=== PATIENT | male | born 1950 | race American Indian/Alaskan Native ===

== ENCOUNTER 2017-01-16 07:25 | Emergency (ER) | payer MEDICARE ==
[2017-01-16 07:48] VITALS: TEMP 98; O2SAT 98
--- NOTE | 2017-01-16 07:53 | ED PDOC ---
Upper Extremity Pain/Injury Time Seen by Provider: 01/16/17 07:34 Chief Complaint (Nursing): Finger,Hand,&Wrist Chief Complaint (Provider): Right hand pain History Per: Patient History/Exam Limitations: no limitations Onset/Duration Of Symptoms: Days (2x) Current Symptoms Are (Timing): Still Present Severity: Moderate Additional Complaint(s): 66 year old male presents to the ED with complaints of right hand pain and swelling that started 2x days ago. He reports taking tylenol with no relief. He denies having associated symptoms of fever, numbness, and weakness, and denies any recent trauma or injury to the hand. PMD: patient does no recall Past Medical History Reviewed: Historical Data, Nursing Documentation, Vital Signs Vital Signs: Last Vital Signs Temp 98 F 01/16/17 07:33 Pulse 103 H 01/16/17 07:33 Resp 16 01/16/17 07:33 BP 164/69 H 01/16/17 07:33 Pulse Ox 98 01/16/17 07:33 - Medical History PMH: CHF, Diverticulitis, HTN, Hypercholesterolemia, Hyperlipidemia, Malignancy (Prostate CA - treated with seeds), End Stage Renal Disease, Chronic Kidney Disease - Surgical History Surgical History: Appendectomy, Pacemaker - Family History Family History: States: Unknown Family Hx - Social History Current smoker - smoking cessation education provided: No Alcohol: None Drugs: Denies - Home Medications Home Medications: Ambulatory Orders Medication Instructions Recorded Allopurinol [Zyloprim] 100 mg PO DAILY 03/15/16 Atorvastatin Calcium 80 mg PO DAILY 03/15/16 Carvedilol [Coreg] 25 mg PO BID 03/15/16 Furosemide 20 mg PO BID 03/15/16 Hydralazine HCl 100 mg PO TID 03/15/16 Sodium Bicarbonate 650 mg PO BID 03/15/16 Sildenafil Citrate [Viagra] 100 mg PO PRN PRN 12/13/16 Acetaminophen [Tylenol 325mg tab] 650 mg PO Q6 PRN #0 tab 12/15/16 Ciprofloxacin HCl [Cipro] 500 mg PO DAILY #14 tablet 12/15/16 Lactobacillus Acidophilus [Bacid 1 cap PO BID #60 cap 12/15/16 Acidophilus] Metronidazole [Flagyl] 500 mg PO TID #45 tablet 12/15/16 amLODIPine [Norvasc] 10 mg PO DAILY #30 tab 12/15/16 Acetaminophen with Codeine 1 each PO Q6H PRN #10 tablet 01/16/17 [Tylenol with Codeine #3 Tablet] Sulfamethoxazole/Trimethoprim 1 tab PO BID #13 tab 01/16/17 [Bactrim DS 800 mg-160 mg] - Allergies Allergies/Adverse Reactions: Allergies Allergy/AdvReac Type Severity Reaction Status Date / Time Penicillins Allergy RASH Verified 01/16/17 07:34 Review of Systems ROS Statement: Except As Marked, All Systems Reviewed And Found Negative Constitutional: Negative for: Fever Musculoskeletal: Positive for: Hand Pain (right hand pain and swelling) Neurological: Negative for: Weakness, Numbness Physical Exam - Reviewed Nursing Documentation Reviewed: Yes Vital Signs Reviewed: Yes - Physical Exam Appears: Positive for: Well, Non-toxic, No Acute Distress Head Exam: Positive for: ATRAUMATIC, NORMOCEPHALIC Skin: Positive for: Normal Color Cardiovascular/Chest: Positive for: Regular Rate, Rhythm, Chest Non Tender Respiratory: Positive for: Normal Breath Sounds. Negative for: Respiratory Distress Pulses-Radial (R): 2+ (sensation is in tact) Extremity: Positive for: Capillary Refill (<2 second capillary refill), Swelling (edema over 2nd MCP joint posteriorly), Other (right hand: mild erythea. No lesions. Minimal warmth). Negative for: Normal ROM (right hand decreased ROM secondary to pain) Neurologic/Psych: Positive for: Alert, Oriented (3x) - Laboratory Results Result Diagrams: 01/16/17 08:18 01/16/17 08:18 - ECG O2 Sat by Pulse Oximetry: 98 Medical Decision Making Medical Decision Makin:34 Initial impression: 66 year old male with right hand pain and swelling. Differential diagnoses include but are not limited to cellulitis, DVT, and arthritis. Initial plan: * XRay hand right 3 views * US duplex upper extrm vein right * CMP * CBC * PTT * prothrombin time * morphine 2mg IV * blood culture * reevaluation Old labs reviewed: BUN/creat on 12/14/16 49/5.4 and 12/15/16 47/5.7. Results discussed in detail with patient, states [facility] has copy of labs from last admission and he knows about renal failure and possibility of hyperkalemia and its ramifications. States he is under care of Senior Systems Engineer at [place], has appt scheduled in next few weeks, advised he needs earlier appointment, expressed verbal understanding. Scribe Attestation: Documented by Rocio Villar, acting as a scribe for Pretty Nieto MD. Provider Scribe Attestation: All medical record entries made by the Scribe were at my direction and personally dictated by me. I have reviewed the chart and agree that the record accurately reflects my personal performance of the history, physical exam, medical decision making, and the department course for this patient. I have also personally directed, reviewed, and agree with the discharge instructions and disposition. Disposition - Clinical Impression Clinical Impression: Renal failure, Cellulitis of hand, right, Arthralgia - Disposition Disposition: Routine/Home Disposition Time: 10:54 Condition: STABLE Additional Instructions: FOLLOW-UP WITH SALES AND MARKETING PROFESSIONAL @ [place] SOON POSSIBLE. Prescriptions: Sulfamethoxazole/Trimethoprim [Bactrim DS 800 mg-160 mg] 1 tab PO BID #13 tab Acetaminophen with Codeine [Tylenol with Codeine #3 Tablet] 1 each PO Q6H PRN # 10 tablet PRN Reason: Pain, Severe (8-10) Instructions: Cellulitis (ED), Renal Failure Diet (DC), End Stage Kidney Disease (ED)
[2017-01-16 08:33] LABS: BASO % 0.6 % (0.0-2.0); EOS # 0.2 K/uL (0.0-0.7); EOS % 3.2 % (0.0-4.0); HEMATOCRIT 36.9 % (35.0-51.0); LYMPH # 0.7 K/uL (1.0-4.3); LYMPH % 11.5 % (20.0-40.0); MEAN CELL VOLUME 83.6 fl (80.0-94.0); MEAN CORPUSCULAR HGB CONC 32.2 g/dL (33.0-37.0); MEAN PLATELET VOLUME 7.6 fl (7.2-11.7); MONO # 0.4 K/uL (0.0-0.8); MONO % 6.9 % (0.0-10.0); NEUT # 4.8 K/uL (1.8-7.0); NEUT % 77.8 % (50.0-75.0); NRBC % 0.1 % (0.0-0.0); RED CELL DISTRIBUTION WIDTH 15.7 % (11.5-14.5); WHITE BLOOD COUNT 6.2 K/uL (4.8-10.8)
--- NOTE | 2017-01-16 08:47 | RAD ---
PROCEDURE: Right hand radiographs. HISTORY: 2nd MCP pain COMPARISON: None. FINDINGS: BONES: Normal. No fracture. JOINTS: Normal. No dislocation. SOFT TISSUES: Normal. OTHER FINDINGS: None. IMPRESSION: Normal right hand radiographs.
[2017-01-16 08:48] LABS: ALB/GLOB RATIO 1.2 (1.0-2.1); BILIRUBIN,TOTAL 0.3 mg/dl (0.2-1.3); CALCIUM 8.6 mg/dL (8.4-10.2); POTASSIUM 4.1 MMOL/L (3.6-5.0); TOTAL PROTEIN 7.5 G/DL (6.3-8.2)
[2017-01-16 09:10] LABS: PARTIAL THROMBOPLASTIN TIME 31.1 SECONDS (23.3-32.5)
[2017-01-16 12:01] VITALS: BP 128/78; PULSE 70; RESP 20
--- NOTE | 2017-01-16 12:07 | US ---
PROCEDURE: Right Upper Extremity Venous Doppler HISTORY: R hand edema COMPARISON: None available. TECHNIQUE: Right upper extremity deep veins, including the lower internal jugular, subclavian, axillary and brachial veins, were evaluated flow, compressibility and respiratory phasicity. Additionally, basilic, cephalic and radial veins were evaluated. FINDINGS: Normal flow, compressibility and respiratory phasicity was observed in the right upper extremity deep veins. IMPRESSION: No evidence of deep venous thrombosis.
== END 2017-01-16 12:01 | disposition home or self-care (01) ==
LOC: H.ER 07:25
DX: L03.113 Cellulitis of right upper limb (principal); N19 Unspecified kidney failure; M25.50 Pain in unspecified joint
CPT/HCPCS: 73130; 80053; 85025; 85610; 85730; 87040; 93971; 96374; 99284; J2270

== ENCOUNTER 2017-06-20 22:31 | Emergency (ER) | payer MEDICARE ==
[2017-06-20 22:39] VITALS: BMI 36.1
[2017-06-20 22:41] VITALS: RESP 16; TEMP 98.6; O2SAT 98
[2017-06-20 23:33] VITALS: BP 147/83; PULSE 90
--- NOTE | 2017-06-20 23:36 | ED PDOC ---
Lower Extremity Pain/Injury Time Seen by Provider: 06/20/17 22:40 Chief Complaint (Nursing): Lower Extremity Problem/Injury Chief Complaint (Provider): Toe Pain History Per: Patient Additional Complaint(s): Patient stubbed his rt 4th toe on a bag of potatoes yesterday. C/o pain ans swelling. Minimal relief from Tylenol. Past Medical History Reviewed: Nursing Documentation, Vital Signs Vital Signs: Last Vital Signs Temp 98.6 F 06/20/17 22:39 Pulse 90 06/20/17 23:30 Resp 16 06/20/17 22:39 BP 147/83 06/20/17 23:30 Pulse Ox 98 06/20/17 22:39 - Medical History PMH: CHF, Diverticulitis, HTN, Hypercholesterolemia, Hyperlipidemia, Malignancy (Prostate CA - treated with seeds), End Stage Renal Disease, Chronic Kidney Disease - Surgical History Surgical History: Appendectomy, Pacemaker - Family History Family History: States: Unknown Family Hx - Home Medications Home Medications: Ambulatory Orders Medication Instructions Recorded Allopurinol [Zyloprim] 100 mg PO DAILY 03/15/16 Atorvastatin Calcium 80 mg PO DAILY 03/15/16 Carvedilol [Coreg] 25 mg PO BID 03/15/16 Furosemide 20 mg PO BID 03/15/16 Hydralazine HCl 100 mg PO TID 03/15/16 Sodium Bicarbonate 650 mg PO BID 03/15/16 Sildenafil Citrate [Viagra] 100 mg PO PRN PRN 12/13/16 Acetaminophen [Tylenol 325mg tab] 650 mg PO Q6 PRN #0 tab 12/15/16 Ciprofloxacin HCl [Cipro] 500 mg PO DAILY #14 tablet 12/15/16 Lactobacillus Acidophilus [Bacid 1 cap PO BID #60 cap 12/15/16 Acidophilus] Metronidazole [Flagyl] 500 mg PO TID #45 tablet 12/15/16 amLODIPine [Norvasc] 10 mg PO DAILY #30 tab 12/15/16 Acetaminophen with Codeine 1 each PO Q6H PRN #10 tablet 01/16/17 [Tylenol with Codeine #3 Tablet] Sulfamethoxazole/Trimethoprim 1 tab PO BID #13 tab 01/16/17 [Bactrim DS 800 mg-160 mg] Ibuprofen [Motrin] 600 mg PO Q6 #20 tab 06/20/17 - Allergies Allergies/Adverse Reactions: Allergies Allergy/AdvReac Type Severity Reaction Status Date / Time Penicillins Allergy RASH Verified 06/20/17 22:39 Review of Systems ROS Statement: Except As Marked, All Systems Reviewed And Found Negative Musculoskeletal: Positive for: Other (left 4th toe edema and ecchymosis) Physical Exam - Reviewed Nursing Documentation Reviewed: Yes Vital Signs Reviewed: Yes - Physical Exam Appears: Positive for: Well, Non-toxic, No Acute Distress Head Exam: Positive for: ATRAUMATIC, NORMAL INSPECTION, NORMOCEPHALIC Skin: Positive for: Normal Color, Warm, DRY Eye Exam: Positive for: EOMI, Normal appearance, PERRL ENT: Positive for: Normal ENT Inspection Neck: Positive for: Normal, Painless ROM Cardiovascular/Chest: Positive for: Regular Rate, Rhythm Respiratory: Positive for: CNT, Normal Breath Sounds Gastrointestinal/Abdominal: Positive for: Normal Exam, Bowel Sounds, Soft Back: Positive for: Normal Inspection Extremity: Positive for: Other (left 4th digit, mild edema and ecchymosis) Neurologic/Psych: Positive for: Alert, Oriented - ECG O2 Sat by Pulse Oximetry: 98 Medical Decision Making Medical Decision Making: Medicated with Motrin PO XR: NAd, as read by VIOLETTE ARMIJO therapy advised Disposition - Clinical Impression Clinical Impression: Toe contusion - Patient ED Disposition Is Patient to be Admitted: No - Disposition Disposition: Routine/Home Disposition Time: 23:42 Condition: STABLE Prescriptions: Ibuprofen [Motrin] 600 mg PO Q6 #20 tab Instructions: Contusion in Adults (ED) Forms: [employer] [facility] ([place]ian)
--- NOTE | 2017-06-21 12:24 | RAD ---
PROCEDURE: X-rays of the right foot. HISTORY: stubbed toe, pain and swelling COMPARISON: No prior similar study available for comparison TECHNIQUE: AP oblique and lateral views of the right foot were obtained. FINDINGS: There is no evidence of acute fracture or dislocation. There are arthritic changes at the 1st metatarsal-phalangeal joint associated with [id number] hallux valgus deformity. There are also moderate arthritic degenerative changes at the tarsal and tarsometatarsal joints. IMPRESSION: No evidence of acute fracture or dislocation. 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
== END 2017-06-20 23:30 | disposition home or self-care (01) ==
LOC: H.ER 22:31
DX: S90.129A Contusion of unspecified lesser toe(s) without damage to nail, initial encounter (principal); W22.8XXA Striking against or struck by other objects, initial encounter; Y92.89 Other specified places as the place of occurrence of the external cause; E78.5 Hyperlipidemia, unspecified; I13.2 Hypertensive heart and chronic kidney disease with heart failure and with stage 5 chronic kidney disease, or end stage renal disease; Z85.46 Personal history of malignant neoplasm of prostate; Z95.0 Presence of cardiac pacemaker

== ENCOUNTER 2018-05-11 16:28 | Observation (INO) | payer MEDICARE ==
[2018-05-11 16:28] VITALS: BMI 36.1
[2018-05-11 17:27] LABS: VENOUS BLOOD GAS BASE EXCESS 9.1 mmol/L (0.0-2.0); VENOUS BLOOD GAS PCO2 53 mmHg (40-60); VENOUS BLOOD GAS PO2 14 mm/Hg (30-55); VENOUS BLOOD PH 7.43 (7.32-7.43)
[2018-05-11] MEDS ORDERED: Sodium Chloride 0.9% 250 ML IV STA (17:37)
[2018-05-11 17:38] LABS: BASO % 0.8 % (0.0-2.0); EOS # 0.1 K/uL (0.0-0.7); EOS % 2.3 % (0.0-4.0); HEMOGLOBIN 13.1 g/dL (12.0-18.0); LYMPH # 1.1 K/uL (1.0-4.3); LYMPH % 17.1 % (20.0-40.0); MEAN CELL VOLUME 88.4 fl (80.0-94.0); MEAN CORPUSCULAR HGB CONC 32.8 g/dL (33.0-37.0); MEAN PLATELET VOLUME 7.7 fl (7.2-11.7); MONO # 0.6 K/uL (0.0-0.8); MONO % 8.9 % (0.0-10.0); NEUT # 4.4 K/uL (1.8-7.0); NEUT % 70.9 % (50.0-75.0); NRBC % 0.1 % (0.0-0.0); RBC 4.52 Mil/uL (4.40-5.90); RED CELL DISTRIBUTION WIDTH 17.7 % (11.5-14.5); WHITE BLOOD COUNT 6.2 K/uL (4.8-10.8)
[2018-05-11 17:51] LABS: ALB/GLOB RATIO 1.3 (1.0-2.1); ALBUMIN 4.9 g/dL (3.5-5.0); CALCIUM 9.9 mg/dL (8.4-10.2)
[2018-05-11 18:04] LABS: PARTIAL THROMBOPLASTIN TIME 30.3 Seconds (25.6-37.1); PROTHROMBIN TIME 11.3 Seconds (9.8-13.1)
[2018-05-11 18:08] LABS: TROPONIN I 0.036 ng/mL (0.00-0.120)
--- NOTE | 2018-05-11 18:13 | RAD ---
Date of service: 05/11/2018 HISTORY: defibrillation COMPARISON: 03/15/2016 FINDINGS: LUNGS: No active pulmonary disease. PLEURA: No significant pleural effusion identified, no pneumothorax apparent. CARDIOVASCULAR: No radiographic findings to suggest acute or significant cardiovascular disease. Position/ configuration of pacemaker device: OSSEOUS STRUCTURES: No significant abnormalities. VISUALIZED UPPER ABDOMEN: Normal. OTHER FINDINGS: None. IMPRESSION: No active disease. No significant interval change compared to the prior examination(s).
--- NOTE | 2018-05-11 19:23 | ED PDOC ---
Syncope/Near Syncope/Dizziness Time Seen by Provider: 05/11/18 16:43 Chief Complaint (Nursing): Weakness/Neurological Deficit Chief Complaint (Provider): AICD went off History Per: Patient History/Exam Limitations: no limitations Onset/Duration Of Symptoms: Sudden Onset (just prior to arrival) Past Medical History Vital Signs: Last Vital Signs Temp Pulse 81 05/11/18 18:32 Resp 16 05/11/18 18:32 BP 146/70 05/11/18 18:32 Pulse Ox 99 05/11/18 18:32 - Medical History PMH: CHF, Diverticulitis, HTN, Hypercholesterolemia, Hyperlipidemia, Malignancy (Prostate CA - treated with seeds), End Stage Renal Disease, Chronic Kidney Disease - Surgical History Surgical History: Appendectomy, Pacemaker - Family History Family History: States: Unknown Family Hx - Home Medications Home Medications: Ambulatory Orders Medication Instructions Recorded Allopurinol [Zyloprim] 100 mg PO Q12 03/15/16 Atorvastatin Calcium 40 mg PO DAILY 03/15/16 Carvedilol [Coreg] 25 mg PO Q12 03/15/16 Furosemide 20 mg PO BID 03/15/16 Sodium Bicarbonate 650 mg PO BID 03/15/16 Calcitriol [Rocaltrol] 0.25 mcg PO DAILY 05/11/18 amLODIPine [Norvasc] 10 mg PO SUTUTHSA 05/11/18 - Allergies Allergies/Adverse Reactions: Allergies Allergy/AdvReac Type Severity Reaction Status Date / Time Penicillins Allergy RASH Verified 05/11/18 16:31 - Laboratory Results Result Diagrams: 05/11/18 17:00 05/11/18 17:00 - ECG O2 Sat by Pulse Oximetry: 99 Disposition - Disposition
--- NOTE | 2018-05-11 20:21 | ED PDOC ---
HPI: Chest Pain Time Seen by Provider: 05/11/18 16:43 Chief Complaint (Nursing): Weakness/Neurological Deficit Chief Complaint (Provider): chest pain History Per: Patient History/Exam Limitations: no limitations Onset/Duration Of Symptoms: Sudden Onset Current Symptoms Are (Timing): Still Present Additional Complaint(s): 68 year old male presents to the emergency department for an evaluation after his defibrillator went off at home. Patient states after 4 hours of dialysis, he ran several errands in the heat then returned home. As he walked up the stairs, he felt a "kick in the chest" with some lightheadedness and more shortness of breath than usual. Presently in ED, patient is asymptomatic and denies any further complaints. PMD: [facility] Past Medical History Reviewed: Historical Data, Nursing Documentation, Vital Signs Vital Signs: Last Vital Signs Temp 97.7 F 05/12/18 16:05 Pulse 86 05/12/18 16:05 Resp 18 05/12/18 16:05 BP 103/67 05/12/18 16:05 Pulse Ox 99 05/13/18 17:03 - Medical History PMH: CAD, CHF, Diabetes, Diverticulitis, HTN, Hypercholesterolemia, Hyperlipidemia, Malignancy (Prostate CA - treated with seeds), End Stage Renal Disease, Chronic Kidney Disease - Surgical History Surgical History: Appendectomy, Pacemaker - Family History Family History: States: Hypertension - Social History Current smoker - smoking cessation education provided: No Ex-Smoker (has not smoked in the last 12 months): No Alcohol: None Drugs: Denies - Home Medications Home Medications: Ambulatory Orders Medication Instructions Recorded Allopurinol [Zyloprim] 100 mg PO Q12 03/15/16 Atorvastatin Calcium 40 mg PO DAILY 03/15/16 Carvedilol [Coreg] 25 mg PO Q12 03/15/16 Furosemide 20 mg PO BID 03/15/16 Sodium Bicarbonate 650 mg PO BID 03/15/16 Calcitriol [Rocaltrol] 0.25 mcg PO DAILY 05/11/18 amLODIPine [Norvasc] 10 mg PO SUTUTHSA 05/11/18 - Allergies Allergies/Adverse Reactions: Allergies Allergy/AdvReac Type Severity Reaction Status Date / Time Penicillins Allergy RASH Verified 05/11/18 16:31 SURYA Risk Score for UA/NSTEMI - SURYA Risk Score Age > 64: YES 3 or more CAD Risk Factors: YES Known CAD (Stenosis greater than 50%): NO Aspirin use in past 7 days: YES Severe Angina: YES EKG ST changes greater than 0.5mm: NO Positive Cardiac Marker: NO SURYA Score: 4 Risk %: 20% Review of Systems ROS Statement: Except As Marked, All Systems Reviewed And Found Negative (and as per HPI) Cardiovascular: Positive for: Chest Pain (pressure) Respiratory: Positive for: SOB with Exertion Neurological: Positive for: Other (lightheaded) Physical Exam - Reviewed Nursing Documentation Reviewed: Yes Vital Signs Reviewed: Yes - Physical Exam Appears: Positive for: No Acute Distress Head Exam: Positive for: ATRAUMATIC, NORMOCEPHALIC Skin: Positive for: Warm, Dry Eye Exam: Positive for: EOMI, PERRL ENT: Negative for: Pharyngeal Erythema, Tonsillar Exudate Neck: Positive for: Painless ROM, Supple Cardiovascular/Chest: Positive for: Regular Rate, Rhythm, Edema. Negative for: Murmur Respiratory: Positive for: Normal Breath Sounds. Negative for: Wheezing Gastrointestinal/Abdominal: Positive for: Soft. Negative for: Tenderness Back: Positive for: Normal Inspection. Negative for: Decreased ROM Extremity: Positive for: Pedal Edema (bilateral) Lymphatic: Negative for: Adenopathy Neurologic/Psych: Positive for: Alert. Negative for: Motor/Sensory Deficits - Laboratory Results Result Diagrams: 05/11/18 17:00 05/11/18 17:00 - ECG O2 Sat by Pulse Oximetry: 99 (RA) Pulse Ox Interpretation: Normal - Radiology X-Ray: Interpreted by Me X-Ray Interpretation: No Acute Disease - Critical Care Total Time (In Min): 30 Documented Critical Care: Time excludes all time spent performint seperately billable procedures Medical Decision Making Medical Decision Making: Initial Impression: Initial Plan: * Type and screen * VBG * EKG * BNP * CMP * Magnesium * Phosphorous * Troponin I Q8H * Urine dipstick * CBC * PTT * PT * CXR * NS 250ml IV per 250mls/hr * Blood culture * Admit 1917 Time: 1650 --[employer] contacted for interrogation of defibrillator. --Patient will require hospital admission for possible arrhythmia. Time: 1733 --CXR FINDINGS: LUNGS: No active pulmonary disease. PLEURA: No significant pleural effusion identified, no pneumothorax apparent. CARDIOVASCULAR: No radiographic findings to suggest acute or significant cardiovascular disease. Position/ configuration of pacemaker\\AICD device: OSSEOUS STRUCTURES: No significant abnormalities. VISUALIZED UPPER ABDOMEN: Normal. OTHER FINDINGS: None. IMPRESSION: No active disease. No significant interval change compared to the prior examination(s). Time: 1928 --Patient is evaluated by Medfrancesca Lockett, noting defibrillator sent shock inappropriately. Settings were re-adjusted. --Discussed case with Dr. Petersen. Patient will be placed on tele-OBS. Advised to speak to ULI Betts --BUDDY Bunch [facility] [address] who will consult on patient while in hospital. Scribe Attestation: Documented by Lela Fuentes, acting as a scribe for Irina Salazar MD. Provider Scribe Attestation: All medical record entries made by the Scribe were at my direction and personally dictated by me. I have reviewed the chart and agree that the record accurately reflects my personal performance of the history, physical exam, medical decision making, and the department course for this patient. I have also personally directed, reviewed, and agree with the discharge instructions and disposition. Disposition - Clinical Impression Clinical Impression: Inappropriate shocks from ICD (implantable cardioverter-defibrillator), Heat exhaustion, Near syncope - Disposition Disposition Time: 18:30 Condition: GUARDED - Pt Status Changed To: Hospital Disposition Of: Observation - POA Present On Arrival: None Diag/Dispo/POA - Present on Admission Any Indicators Present on Admission: No - Discharge Diagnosis: Heat exhaustion, Near syncope, Inappropriate shocks from ICD (implantable cardioverter-defibrillator) Disposition: HOSPITALIZED Time Seen by Provider: 05/11/18 16:43 Critical Care Time - Critical Care Note Total Time (in mins): 30 Documented critical care: time excludes all time spent performing seperately billable procedures.
--- NOTE | 2018-05-12 10:08 | CP.PCM.CON ---
History of Present Illness - History of Present Illness History of Present Illness: 68 year old male presents to the emergency department for an evaluation after his defibrillator went off at home. Patient states after 4 hours of dialysis, he ran several errands in the heat then returned home. As he walked up the stairs, he felt a "kick in the chest" with some lightheadedness and more shortness of breath than usual. Presently in ED, patient is asymptomatic and denies any further complaints. patient known to have end stage renal disease on hemodialysis 3 timesek Wednesday patient goes to [facility] dialysis unit patient started at the dialysis in October this year at the [facility] and then been having aent dialysis and doing well as he stated his at the bedside. Patient has defibrillator AV access in the right upper thigh patient has multiple complication in the upper arm also in the upper thigh social history not contributory as noted Review of Systems - Constitutional Constitutional: absent: Chills - Cardiovascular Cardiovascular: Chest Pain. absent: Acrocyanosis, Diaphoresis, Pedal Edema - Respiratory Respiratory: absent: Hemoptysis, Chest Congestion - Gastrointestinal Gastrointestinal: absent: Abdominal Pain, Coffee Ground Emesis, Vomiting - Genitourinary Genitourinary: Nocturia - Musculoskeletal Musculoskeletal: Muscle Weakness. absent: Abnormal Gait - Neurological Neurological: absent: Confusion, Syncope - Psychiatric Psychiatric: Anxiety - Endocrine Endocrine: Fatigue - Hematologic/Lymphatic Hematologic: absent: Easy Bleeding Past Patient History - Infectious Disease Hx of Infectious Diseases: None - Tetanus Immunizations Tetanus Immunization: Unknown - Past Medical History & Family History Past Medical History?: Yes - Past Social History Smoking Status: Former Smoker - CARDIAC Hx Cardiac Disorders: Yes Hx Hypercholesterolemia: Yes Hx Hypertension: Yes Hx Internal Defibrillator: Yes - PULMONARY Hx Respiratory Disorders: No - NEUROLOGICAL Hx Neurological Disorder: No - HEENT Hx HEENT Problems: Yes - RENAL Hx Chronic Kidney Disease: Yes Hx Dialysis: Yes Type of Dialysis Access: right thigh av Date of Last Dialysis Treatment: 05/11/18 Hx Renal Failure: Yes - ENDOCRINE/METABOLIC Hx Endocrine Disorders: No - HEMATOLOGICAL/ONCOLOGICAL Hx Blood Disorders: No - INTEGUMENTARY Hx Dermatological Problems: No - MUSCULOSKELETAL/RHEUMATOLOGICAL Hx Musculoskeletal Disorders: Yes Hx Falls: No Hx Gout: Yes - GASTROINTESTINAL Hx Gastrointestinal Disorders: Yes Hx Diverticulitis: Yes - GENITOURINARY/GYNECOLOGICAL Hx Genitourinary Disorders: Yes Hx Prostate Cancer: Yes (treated with seeds) - PSYCHIATRIC Hx Psychophysiologic Disorder: No Hx Substance Use: No - SURGICAL HISTORY Hx Surgeries: Yes Hx Appendectomy: Yes Other/Comment: cyst neck removal 2008 - ANESTHESIA Hx Anesthesia: Yes Hx Anesthesia Reactions: No Hx Malignant Hyperthermia: No Has any member of the family had a problem w/ anesthesia?: No Meds Allergies/Adverse Reactions: Allergies Allergy/AdvReac Type Severity Reaction Status Date / Time Penicillins Allergy RASH Verified 05/11/18 16:31 - Medications Medications: Current Medications Allopurinol (Zyloprim) 100 mg PO Q12 [facility] Last Admin: 05/12/18 08:55 Dose: 100 mg Amlodipine Besylate (Norvasc) 10 mg PO [facility] Atorvastatin Calcium (Lipitor) 40 mg PO DAILY [facility] Last Admin: 05/12/18 08:55 Dose: 40 mg Calcitriol (Rocaltrol) 0.25 mcg PO DAILY [facility] Last Admin: 05/12/18 08:55 Dose: 0.25 mcg Carvedilol (Coreg) 25 mg PO Q12 [facility] Last Admin: 05/12/18 08:53 Dose: 25 mg Furosemide (Lasix) 20 mg PO BID [facility] Last Admin: 05/12/18 08:54 Dose: Not Given Heparin Sodium (Porcine) (Heparin) 5,000 units SC Q8 [facility] PRN Reason: Protocol Last Admin: 05/12/18 08:54 Dose: 5,000 units Sodium Bicarbonate (Sodium Bicarbonate Tab) 650 mg PO BID [facility] Last Admin: 05/12/18 08:53 Dose: 650 mg Physical Exam - Constitutional Appears: No Acute Distress - Eye Exam Eye Exam: absent: Conjunctival injection - ENT Exam ENT Exam: Mucous Membranes Moist - Neck Exam Neck exam: Negative for: Lymphadenopathy - Respiratory Exam Respiratory Exam: NORMAL BREATHING PATTERN. absent: Chest Wall Tenderness - Cardiovascular Exam Cardiovascular Exam: absent: REGULAR RHYTHM - GI/Abdominal Exam GI & Abdominal Exam: Normal Bowel Sounds. absent: Guarding - Extremities Exam Extremities exam: Negative for: calf tenderness - Back Exam Back exam: absent: CVA tenderness (L), CVA tenderness (R) - Neurological Exam Neurological exam: Alert - Psychiatric Exam Psychiatric exam: Normal Affect Results - Vital Signs Recent Vital Signs: Last Vital Signs Temp 97.5 F L 05/12/18 08:00 Pulse 90 05/12/18 08:53 Resp 20 05/12/18 08:00 BP 104/68 05/12/18 08:54 Pulse Ox 95 05/12/18 08:00 - Labs Result Diagrams: 05/11/18 17:00 05/11/18 17:00 Labs: Laboratory Results - last 24 hr 05/11/18 05/11/18 05/11/18 17:00 17:00 17:00 WBC 6.2 RBC 4.52 Hgb 13.1 Hct 39.9 MCV 88.4 D MCH 29.0 MCHC 32.8 L RDW 17.7 H Plt Count 182 MPV 7.7 Neut % (Auto) 70.9 Lymph % (Auto) 17.1 L [place] % (Auto) 8.9 Eos % (Auto) 2.3 Baso % (Auto) 0.8 Neut # (Auto) 4.4 Lymph # (Auto) 1.1 [place] # (Auto) 0.6 Eos # (Auto) 0.1 Baso # (Auto) 0.0 PT 11.3 INR 1.0 APTT 30.3 pO2 VBG pH VBG pCO2 VBG HCO3 VBG Total CO2 VBG O2 Sat (Calc) VBG Base Excess VBG Potassium Glucose Lactate FiO2 Sodium 142 Potassium 5.0 Chloride 94 L Carbon Dioxide 31 H Anion Gap 22 H BUN 23 H Creatinine 6.8 H Est GFR ( Amer) 10 Est GFR (Non-Af Amer) 8 Random Glucose 100 Calcium 9.9 Phosphorus 5.0 H Magnesium 2.1 Total Bilirubin 0.8 AST 21 ALT 34 Alkaline Phosphatase 92 Troponin I 0.0360 NT-Pro-B Natriuret Pep 2670 H Total Protein 8.7 H Albumin 4.9 Globulin 3.8 Albumin/Globulin Ratio 1.3 Venous Blood Potassium Blood Type Antibody Screen BBK History Checked 05/11/18 05/11/18 05/12/18 17:22 17:47 01:18 WBC RBC Hgb Hct MCV MCH MCHC RDW Plt Count MPV Neut % (Auto) Lymph % (Auto) [place] % (Auto) Eos % (Auto) Baso % (Auto) Neut # (Auto) Lymph # (Auto) [place] # (Auto) Eos # (Auto) Baso # (Auto) PT INR APTT pO2 14 L VBG pH 7.43 VBG pCO2 53 VBG HCO3 29.9 VBG Total CO2 36.8 H VBG O2 Sat (Calc) 22.0 L VBG Base Excess 9.1 H VBG Potassium 4.9 Glucose 102 Lactate 2.4 H FiO2 21.0 Sodium 139.0 Potassium Chloride 97.0 L Carbon Dioxide Anion Gap BUN Creatinine Est GFR ( Amer) Est GFR (Non-Af Amer) Random Glucose Calcium Phosphorus Magnesium Total Bilirubin AST ALT Alkaline Phosphatase Troponin I 0.0400 NT-Pro-B Natriuret Pep Total Protein Albumin Globulin Albumin/Globulin Ratio Venous Blood Potassium 4.9 Blood Type O POSITIVE Antibody Screen Negative BBK History Checked Patient has bt 05/12/18 08:02 WBC RBC Hgb Hct MCV MCH MCHC RDW Plt Count MPV Neut % (Auto) Lymph % (Auto) [place] % (Auto) Eos % (Auto) Baso % (Auto) Neut # (Auto) Lymph # (Auto) [place] # (Auto) Eos # (Auto) Baso # (Auto) PT INR APTT pO2 VBG pH VBG pCO2 VBG HCO3 VBG Total CO2 VBG O2 Sat (Calc) VBG Base Excess VBG Potassium Glucose Lactate FiO2 Sodium Potassium Chloride Carbon Dioxide Anion Gap BUN Creatinine Est GFR ( Amer) Est GFR (Non-Af Amer) Random Glucose Calcium Phosphorus Magnesium Total Bilirubin AST ALT Alkaline Phosphatase Troponin I 0.0390 NT-Pro-B Natriuret Pep Total Protein Albumin Globulin Albumin/Globulin Ratio Venous Blood Potassium Blood Type Antibody Screen BBK History Checked Assessment & Plan (1) Chronic kidney disease with end stage renal failure on dialysis Assessment and Plan: patient with end stage renal disease on maintenance hemodialysis Wednesday. He was admitted because of evaluation of pacemaker. patient scheduled for hemodialysis for tomorrow consent was signed. If his stay until tomorrow at arrangement will be done I did discuss with the nurse on the floor hypertension and history of congestive heart failure. Status: Acute (2) HTN (hypertension) Status: Chronic Priority: High
--- NOTE | 2018-05-12 13:56 | CARD ---
APPROVED REPORT Date of service: 05/12/2018 EXAM: Two-dimensional and M-mode echocardiogram with Doppler and color Doppler. Other Information Quality : AverageRhythm : Pacemaker INDICATION Congestive Heart Failure Surgery/Intervention Pacemaker: ICD/Pacemaker: 2D DIMENSIONS IVSd1.29 (0.7-1.1cm)LVDd3.39 (3.9-5.9cm) LVOT Diameter1.89 (1.8-2.4cm)PWd1.27 (0.7-1.1cm) IVSs1.30 (0.8-1.2cm)LVDs2.67 (2.5-4.0cm) FS (%) 21.5 %PWs1.46 (0.8-1.2cm) M-Mode DIMENSIONS Left Atrium (MM)4.04 (2.5-4.0cm)IVSd0.79 (0.7-1.1cm) Aortic Root3.31 (2.2-3.7cm)LVDd7.01 (4.0-5.6cm) Aortic Cusp Exc.2.12 (1.5-2.0cm)PWd1.06 (0.7-1.1cm) IVSs1.65 cmFS (%) 37 % LVDs4.43 (2.0-3.8cm)PWs1.42 cm Mitral Valve E/A ratio0.0 TDI E/Lateral E'0.0E/Medial E'0.0 Tricuspid Valve TR Peak [id number] Peak Gr.18mmHg [id number] LEFT VENTRICLE The left ventricle is normal size. There is mild to moderate concentric left ventricular hypertrophy. The left ventricular function is normal. The left ventricular ejection fraction is within the normal range. LVEF 65% Regional wall motion abnormalities noted. Mild late septal hypokinesia (close to the apex) The left ventricular diastolic function is normal. No left ventricle thrombus noted on this study. There is no ventricular septal defect visualized. There is no left ventricular aneurysm. There is no mass noted in the left ventricle. RIGHT VENTRICLE The right ventricle is normal size. There is normal right ventricular wall thickness. The right ventricular systolic function is normal. ATRIA The left atrium size is normal. The right atrium size is normal. The interatrial septum is intact with no evidence for an atrial septal defect. AORTIC VALVE The aortic valve is normal in structure. No aortic regurgitation is present. There is no aortic valvular stenosis. There is no aortic valvular vegetation. MITRAL VALVE The mitral valve is normal in structure. There is no evidence of mitral valve prolapse. There is no mitral valve stenosis. There is no mitral valve regurgitation noted. TRICUSPID VALVE The tricuspid valve is normal in structure. There is no tricuspid valve regurgitation noted. There is no tricuspid valve prolapse or vegetation. There is no tricuspid valve stenosis. PULMONIC VALVE The pulmonary valve is normal in structure. There is no pulmonic valvular regurgitation. There is no pulmonic valvular stenosis. GREAT VESSELS The aortic root is normal in size. The IVC is normal in size and collapses >50% with inspiration. PERICARDIAL EFFUSION The pericardium appears normal. There is no pleural effusion. <Conclusion> The left ventricle is normal size. There is mild to moderate concentric left ventricular hypertrophy. The left ventricular function is normal. The left ventricular ejection fraction is within the normal range. LVEF 65% Regional wall motion abnormalities noted. Mild late septal hypokinesia (close to the apex) The left ventricular diastolic function is normal.
--- NOTE | 2018-05-12 15:09 | CARD ---
APPROVED REPORT Date of service: 05/11/2018 EKG Measurement Heart [id number] <Conclusion> Atrial-sensed ventricular-paced rhythm Biventricular pacemaker detected Abnormal ECG
[2018-05-12 16:06] VITALS: BP 103/67; PULSE 86; RESP 18; TEMP 97.7
--- NOTE | 2018-05-12 23:55 | CON ---
DATE: 05/12/2018 REASON FOR CONSULTATION: ICD discharge. HISTORY OF PRESENT ILLNESS: The patient is A 68-year-old -[place] male who is a [place] , has history of nonischemic cardiomyopathy. Underwent ICD placement in 2009 with battery replacement in 08/2017. His mosquito sprayer and civil engineering technician have relocated to [place], and the patient has no civil engineering technician at this time. The patient was initiated to hemodialysis in 10/2017, and the cause for his renal failure is hypertension according to the patient. The patient's schedule is Wednesday, Wednesday, and Wednesday. The patient presented yesterday because of ICD discharge as he was walking. He was jolted by electric shock and then he felt weak, diaphoretic, but did not lose balance or consciousness. The patient does not recall any symptoms prior to the defibrillator discharge. The patient was evaluated by the emergency room physician who called the [employer] ct scan technician for analysis, a person by name of Mr. Orr, who discussed the case with me that the ICD discharge is related to oversensing of T waves as ventricular tachycardia and any necessary adjustment was done. However, I strongly recommended having electrophysiology evaluation which was requested as I discussed the case with the emergency room physician Dr. Salazar. The patient denies any chest pain or shortness of breath at this time. SOCIAL HISTORY: Nonsmoker. Nondrinker. He lives with his . MEDICATIONS: Coreg 25 mg twice a day, heparin 5000 units every 8 hours, Lasix 20 mg p.o. twice a day, Lipitor 40 mg once a day, Norvasc 10 mg once a day, Rocaltrol 0.25 mcg daily, sodium bicarbonate 650 mg p.o. twice a day, Zyloprim 100 mg every 12 hours. PAST MEDICAL HISTORY: Hypertension, nonischemic cardiomyopathy, end-stage renal disease, on hemodialysis. PHYSICAL EXAMINATION: GENERAL: The patient is an elderly male who does not appear to be in acute distress. VITAL SIGNS: Blood pressure 104/69, heart rate 102, temperature 97.5, respirations 20. HEENT: Normocephalic. NECK: No JVD. CHEST: Clear. HEART: S1 and S2 regular. ABDOMEN: Soft. EXTREMITIES: No edema. LABORATORY DATA: SMA-7: Sodium 142, potassium 5, chloride 94, CO2 of 31, glucose 100, BUN 23, creatinine 6.3. Three sets of troponins are not in the elevated range. ProBNP is 2670. PT, PTT, INR are within normal limits. Hemoglobin and hematocrit 13.1 and 39.9. White count and platelet count are within normal limits. EKG revealed atrial sinus ventricular paced rhythm at the rate of 88. Chest x-ray revealed prominent bronchovascular markings. No cardiomegaly and ICD lead with biventricular pacemaker as well as atrial pacing leads. ASSESSMENT: 1. Status post implantable cardioverter defibrillator discharge related to oversensing of T waves. 2. cardiomyopathy. 3. End-stage renal disease, on hemodialysis. 4. Hypertension. RECOMMENDATIONS: Continue ____ Lipitor 40 mg once a day, Norvasc 15 mg once a day, Zyloprim 100 mg twice a day. I will review the echocardiographic study performed today. Will be evaluated by Dr. Prince Lux, the mosquito sprayer. Nicko Petersen MD
--- NOTE | 2018-05-13 06:46 | CP.PCM.HP ---
History of Present Illness - History of Present Illness History of Present Illness: CC: Defibrillator shock HPI: A 68 year old male presents to the emergency department for an evaluation after his defibrillator went off at home. Patient states after 4 hours of dialysis, he ran several errands in the heat then returned home. As he walked up the stairs, he felt a "kick in the chest" with some lightheadedness and more shortness of breath than usual. Presently in ED, patient is asymptomatic and denies any further complaints. Present on Admission - Present on Admission Any Indicators Present on Admission: No Review of Systems - Review of Systems All systems: reviewed and no additional remarkable complaints except Past Patient History - Infectious Disease Hx of Infectious Diseases: None - Tetanus Immunizations Tetanus Immunization: Unknown - Past Medical History & Family History Past Medical History?: Yes Past Family History: Reviewed and not pertinent - Past Social History Smoking Status: Former Smoker Alcohol: None Drugs: Denies - CARDIAC Hx Cardiac Disorders: Yes Hx Hypercholesterolemia: Yes Hx Hypertension: Yes Hx Internal Defibrillator: Yes - PULMONARY Hx Respiratory Disorders: No - NEUROLOGICAL Hx Neurological Disorder: No - HEENT Hx HEENT Problems: Yes - RENAL Hx Chronic Kidney Disease: Yes Hx Dialysis: Yes Type of Dialysis Access: right thigh av Date of Last Dialysis Treatment: 05/11/18 Hx Renal Failure: Yes - ENDOCRINE/METABOLIC Hx Endocrine Disorders: No - HEMATOLOGICAL/ONCOLOGICAL Hx Blood Disorders: No - INTEGUMENTARY Hx Dermatological Problems: No - MUSCULOSKELETAL/RHEUMATOLOGICAL Hx Musculoskeletal Disorders: Yes Hx Falls: No Hx Gout: Yes - GASTROINTESTINAL Hx Gastrointestinal Disorders: Yes Hx Diverticulitis: Yes - GENITOURINARY/GYNECOLOGICAL Hx Genitourinary Disorders: Yes Hx Prostate Cancer: Yes (treated with seeds) - PSYCHIATRIC Hx Psychophysiologic Disorder: No Hx Substance Use: No - SURGICAL HISTORY Hx Surgeries: Yes Hx Appendectomy: Yes Other/Comment: cyst neck removal 2008 - ANESTHESIA Hx Anesthesia: Yes Hx Anesthesia Reactions: No Hx Malignant Hyperthermia: No Has any member of the family had a problem w/ anesthesia?: No Meds Allergies/Adverse Reactions: Allergies Allergy/AdvReac Type Severity Reaction Status Date / Time Penicillins Allergy RASH Verified 05/11/18 16:31 Physical Exam - Constitutional Appears: Well - Head Exam Head Exam: ATRAUMATIC, NORMAL INSPECTION, NORMOCEPHALIC - Eye Exam Eye Exam: EOMI, Normal appearance, PERRL Pupil Exam: NORMAL ACCOMODATION, PERRL - ENT Exam ENT Exam: Mucous Membranes Moist, Normal Exam - Neck Exam Neck exam: Positive for: Normal Inspection - Cardiovascular Exam Cardiovascular Exam: REGULAR RHYTHM, +S1, +S2 Additional comments: Left Chest AICD - GI/Abdominal Exam GI & Abdominal Exam: Normal Bowel Sounds, Soft. absent: Tenderness - Extremities Exam Extremities exam: Positive for: normal capillary refill, normal inspection - Back Exam Back exam: NORMAL INSPECTION - Neurological Exam Neurological exam: Alert, CN II-XII Intact, Normal Gait, Oriented x3, Reflexes Normal - Psychiatric Exam Psychiatric exam: Normal Affect, Normal Mood - Skin Skin Exam: Dry, Intact, Normal Color, Warm Results - Vital Signs Recent Vital Signs: Last Vital Signs Temp 97.7 F 05/12/18 16:05 Pulse 86 05/12/18 16:05 Resp 18 05/12/18 16:05 BP 103/67 05/12/18 16:05 Pulse Ox 100 05/12/18 16:05 - Labs Result Diagrams: 05/11/18 17:00 05/11/18 17:00 Labs: Laboratory Results - last 24 hr 05/11/18 05/12/18 17:22 08:02 POC Glucose (mg/dL) 86 Troponin I 0.0390 - Imaging and Cardiology TTE: Status: Report reviewed by me Additional comment: mild to Mod diastolic dysfunction. Wall Motion abnormality at the [place] Assessment & Plan (1) Inappropriate shocks from ICD (implantable cardioverter-defibrillator) Assessment and Plan: Interrogated, and No V Arrhythmia. Golf Course Mechanic and Electrophysilogist evalauted the patient and cleared for D/c home Status: Acute Priority: Medium (2) Chronic kidney disease with end stage renal failure on dialysis Assessment and Plan: HD MW Title Specialist onboard Status: Chronic (3) CHF (congestive heart failure) Assessment and Plan: Diastolic Dysfunction Status: Chronic Priority: Medium (4) HTN (hypertension) Status: Chronic Priority: High
--- NOTE | 2018-05-13 07:33 | CON ---
DATE: 05/12/2018 INPATIENT ELECTROPHYSIOLOGY CONSULTATION PHYSICIAN REQUESTING CONSULT: Dr. Bunch as well as Dr. Nicko Petersen. REASON FOR EVALUATION: 1. Status post AICD. 2. Status post shock. 3. History of systolic heart failure, dilated cardiomyopathy. Thank you very much for this consult. HISTORY OF PRESENT ILLNESS: The patient is a 68-year-old male with past medical history significant for end-stage renal disease on hemodialysis, cardiomyopathy, status post defibrillator, who presents to [facility] after recurrent AICD shocks. The patient was seen and evaluated after being shocked where he underwent AICD interrogation, which showed inappropriate shock secondary to Q-wave oversensing. The patient had been doing very well. He is on hemodialysis. He does undergo for hemodialysis on Wednesday, Wednesday, and Wednesday. Recently, the patient's carvedilol has been decreased secondary to the orthostatic hypotension where he was holding his carvedilol on dialysis days. He denies any prior AICD transfer, recent hospitalizations, or heart failure. The patient has been following up with Dr. Tate De La Rosa at [facility]. However, recently Dr. De La Rosa had left the practice, he notes that no recent followup. Again, the patient receives most of his care at the [facility]. REVIEW OF SYSTEMS: Denies any fevers, chills, cough, wheezes, chest pain, shortness of breath, palpitations. The aforementioned AICD chart, no worsening lower extremity edema, no nausea, vomiting, diarrhea, or constipation. No urinary complaints. No musculoskeletal issues. PSYCHOSOCIAL ISSUES: The patient lives independently with his . PAST MEDICAL HISTORY: As mentioned previously; dilated cardiomyopathy, history of AICD implantation, chronic kidney disease on hemodialysis, and parathyroid abnormalities. MEDICATIONS: At the time of admission includes Ultram 100 mg p.o. every 12 hours, Norvasc 10 mg p.o. daily, Lipitor 40 mg p.o. at bedtime, Coreg 25 mg p.o. b.i.d., and Lasix 20 mg p.o. b.i.d. LABORATORY DATA: On review of relevant lab work, the patient's CBC is unremarkable with a white count of 6.2, H and H of 13.1 and 39.9, platelets of 182. BUN and creatinine are 23 and 6.80, potassium is 5, and glucose of 100. On review of lab work, the patient has a white count of 6.2, H and H of 13.1 and 39.9, platelets of 182. Echocardiogram which was done on 05/11/2018 shows that LV function is normal in size, mild to moderate concentric left ventricular hypertrophy, left ventricular heart function is normal with an ejection fraction of 65% and repeat 65%, regional wall motion abnormalities are present with mild left septal hypokinesis close through the apex. Right ventricle is normal size and function. Right atrial size is normal. Aortic valve is also normal strength and function as his mitral valve and tricuspid valve. Pulmonic valve is within normal limits. EKG, which is dated to 05/11/2018 shows atrial sinus ventricular paced rhythm with biventricular pacing which is present. PHYSICAL EXAMINATION: VITAL SIGNS: As follows; temperature is 97.5, pulse rate of 90, blood pressure is 104/68. GENERAL: He is a well-developed, well-nourished, very pleasant male in no acute distress, able to speak in complete sentences. HEENT: Head is normocephalic and atraumatic. There is no anirudh facial asymmetry. Mucous membranes appeared to be moist. ABDOMEN: Soft, obese. Nontender and nondistended. Positive bowel sounds. EXTREMITIES: No cyanosis, clubbing, or edema. AICD site which is on the right side appears to be functioning well. There is dialysis access on the prior scars in the left upper extremity. The patient is currently being in access to the right lower leg. On review of interrogation, the patient has a [employer] Viva XT device, serial number [id number]. The patient's ventricular and atrial thresholds are within normal limits. On therapy gibbons, the patient had multiple episodes of Q-wave oversensing in the setting of sinus tachycardia. Heart rates are being found to be in the 250s. The patient received a total of two therapies on 05/11/2018 which is yesterday. Sinus Q waves and R waves are within normal limits. Threshold is within normal limits. The patient otherwise is being monitored. Last interrogation appears to be from 02/2018. The patient was then initially implanted in [facility]. The patient was interrogated. The following changes were made in regards to avoiding Q-wave oversensing sensitivity with increase from 0.3 to 0.45. The sensing switched from a near field RV tip to RV ring to RV tip to COIL configuration hopefully reducing Q wave sensing. In addition, the blanking was also increased following intraventricular pacing. ASSESSMENT AND PLAN: 1. Status post implantable cardioverter-defibrillator with normal functioning device. The afore-mentioned changes were performed to avoid Q-wave oversensing. have episodes of Q-wave oversensing which he did not receive therapy. The patient is advised to follow up closely with [facility]. If he wishes, visit the office and my contact information will be provided for him. We strongly advised to follow up with someone from a standpoint. 2. Status post shock, the patient appears to have been in his sinus tachycardia while exerting himself following dialysis yesterday. The patient is advised to take, perhaps a lower dose of carvedilol, which he has been skipping because this is still may causing him to have accelerated sinus rates and the potential Q-wave oversensing and potentially getting shocked. The patient is advised to at least have a Coreg or, perhaps, a lower dose of Coreg on dialysis days. He understands the instructions. 3. History of systolic heart failure, dilated cardiomyopathy. At this point, the patient appears to be optimized from the volume standpoint, appears to be in reasonable medical therapy, and apparently, the ejection fraction has improved from what was previously reported, currently within normal limits. The patient still has significant wall motion abnormalities, which may be secondary to biventricular pacing. The benefits of biventricular pacing appears to be very clear with normalization of left ventricular function and possibly of heart failure patients. From a electrophysiology standpoint, the patient may be discharged and to follow up closely with his primary physician as well as the [facility]. Thank you for allowing me to participate in the care of your patient. Please do not hesitate to call for any question with regards to his care. Prince Lux MD cc: Nicko Petersen MD [facility] # [id number] DENISE
[2018-05-13 17:00] VITALS: O2SAT 99
== END 2018-05-12 17:20 | disposition home or self-care (01) ==
LOC: H.ER 16:28 → H.ERHOLD 19:18 → H.TEL 21:48
PROVIDERS: ADMIT Internal Medicine; ATTEND Internal Medicine
DX: T82.191A Other mechanical complication of cardiac pulse generator (battery), initial encounter (principal); R57.8 Other shock; I42.0 Dilated cardiomyopathy; N18.6 End stage renal disease; I50.22 Chronic systolic (congestive) heart failure; I25.10 Atherosclerotic heart disease of native coronary artery without angina pectoris; I13.2 Hypertensive heart and chronic kidney disease with heart failure and with stage 5 chronic kidney disease, or end stage renal disease; R00.0 Tachycardia, unspecified; E78.00 Pure hypercholesterolemia, unspecified; E11.22 Type 2 diabetes mellitus with diabetic chronic kidney disease; E78.5 Hyperlipidemia, unspecified; Y83.8 Other surgical procedures as the cause of abnormal reaction of the patient, or of later complication, without mention of misadventure at the time of the procedure; Z95.810 Presence of automatic (implantable) cardiac defibrillator; Z99.2 Dependence on renal dialysis; Z85.46 Personal history of malignant neoplasm of prostate; Z87.891 Personal history of nicotine dependence; Z88.0 Allergy status to penicillin; Y92.9 Unspecified place or not applicable
CPT/HCPCS: 36415; 71045; 80053; 82803; 82948; 83735; 83880; 84100; 84484; 85025; 85610; 85730; 86850; 86900; 87040; 93005; 93306; 96360; 99285; G0378; J1644; J7030